=== PATIENT | female | born 1995 ===

== ENCOUNTER 2018-10-21 13:07 | Emergency (ER) | payer BC ==
[2018-10-21] MEDS ORDERED: NS(*) 0.9% 1000 ML BAG 1,000 ML IV ONE (13:24)
[2018-10-21] MEDS ORDERED: ONDANSETRON 4 MG ODT TABDP SL ONE (13:25)
[2018-10-21] MEDS ORDERED: KETOROLAC 15 MG/ML VIAL IVP ONE (13:25)
[2018-10-21] MEDS ORDERED: LORazepam 2 MG/ML VIAL IVP ONE (13:25)
--- NOTE | 2018-10-21 13:29 | ER Report ---
History and Physical Time Seen By MD: 13:25 Hx. of Stated Complaint: patient is reporting bilateral shoulder pain and pain in the muscles of her neck HPI/ROS CHIEF COMPLAINT: Muscle pain, dizziness nausea HISTORY OF PRESENT ILLNESS: Patient is an otherwise healthy 23-year-old female who states this morning she woke up and felt some dizziness and also heaviness to her arms and legs. She denies any significant trauma or injury. She states that as the day progressed she noticed more increasing pain to her upper neck an d shoulder area. Patient works as daycare provider. She denies any headache. Although she does state that she was seeing flashes of light in both of her eyes and weird squiggles like a strobe light. She denies any chest pain or abdominal pain she denies vomiting or diarrhea but does report nausea. She has no known ill contacts. She states when she tilts her head back she feels somewhat dizzy. REVIEW OF SYSTEMS: Respiratory: No cough, no dyspnea. Cardiovascular: No chest pain, no palpitations. Gastrointestinal: No vomiting, no abdominal pain. Musculoskeletal: Neck pain generalized muscle pain Allergies: Coded Allergies: No Known Drug Allergies (Unverified , 10/21/18) Home Meds No Active Prescriptions or Reported Meds Past Medical/Surgical History No known medical problems Hx Substance Use Disorder: No Hx Alcohol Use: No Constitutional Vital Sign - Last 24 Hours 10/21/18 13:09 Temp 97.8 Pulse 106 Resp 16 B/P (MAP) 135/73 Pulse Ox 96 O2 Delivery Room Air Physical Exam General Appearance: The patient is alert, has no immediate need for airway protection and no signs of toxicity. Eyes: Pupils equal and round no pallor or injection. Anoscopic exam reveals sharp disks bilaterally no AV nicking, extraocular muscles are intact and symmetrical. ENT, Mouth: Mucous membranes are moist. Respiratory: There are no retractions, lungs are clear to auscultation. Cardiovascular: Regular rate and rhythm. Gastrointestinal: Abdomen is soft and non tender, no masses, bowel sounds normal. Neurological: Cranial nerves II through XII are intact and symmetrical. Skin: Warm and dry, no rashes. Musculoskeletal: Neck is supple non tender. Extremities are nontender, nonswollen and have full range of motion. Medical Decision Making Data Points Result Diagram: 10/21/18 1340 10/21/18 1340 Laboratory Hematology Test 10/21/18 13:40 White Blood Count 6.3 k/uL (4.5-11.0) Red Blood Count 4.81 M/uL (4.17-5.56) Hemoglobin 15.1 g/dL (12.0-16.0) Hematocrit 43.7 % (34.0-47.0) Mean Corpuscular Volume 91.0 fL (80.0-96.0) Mean Corpuscular Hemoglobin 31.3 pg (26.0-33.0) Mean Corpuscular Hemoglobin Concent 34.4 g/dL (32.0-36.0) Red Cell Distribution Width 13.0 % (11.5-14.5) Platelet Count 214 K/uL (150-450) Mean Platelet Volume 8.4 fL (7.2-11.1) Neutrophils (%) (Auto) 57.7 % (39.4-72.5) Lymphocytes (%) (Auto) 31.7 % (17.6-49.6) Monocytes (%) (Auto) 8.6 % (4.1-12.4) Eosinophils (%) (Auto) 1.5 % (0.4-6.7) Basophils (%) (Auto) 0.5 % (0.3-1.4) Nucleated RBC Relative Count (auto) 0.0 /100WBC Neutrophils # (Auto) 3.6 K/uL (2.0-7.4) Lymphocytes # (Auto) 2.0 K/uL (1.3-3.6) Monocytes # (Auto) 0.5 K/uL (0.3-1.0) Eosinophils # (Auto) 0.1 K/uL (0.0-0.5) Basophils # (Auto) 0.0 K/uL (0.0-0.1) Nucleated RBC Absolute Count (auto) 0.00 K/uL Chemistry Test 10/21/18 13:40 Sodium Level 137 mmol/L (137-145) Potassium Level 3.6 mmol/L (3.5-5.0) Chloride Level 105 mmol/L (98-107) Carbon Dioxide Level 24 mmol/L (22-31) Blood Urea Nitrogen 9 mg/dl (7-18) Creatinine 0.70 mg/dl (0.52-1.04) Glomerular Filtration Rate Calc > 60.0 Random Glucose 90 mg/dl (75-110) Calcium Level 9.2 mg/dl (8.4-10.2) Total Creatine Kinase 83 U/L (30-135) Human Chorionic Gonadotropin, Qual Negative (NEGATIVE) Urinalysis Test 10/21/18 13:00 Urine Color Yellow Urine Clarity Cloudy Urine pH 7.0 pH (4.8-9.5) Urine Specific [place] 1.024 Urine Protein Negative mg/dL (NEGATIVE) Urine Glucose (UA) Negative mg/dL (NEGATIVE) Urine Ketones Negative mg/dL (NEGATIVE) Urine Blood Negative (NEGATIVE) Urine Nitrite Negative (NEGATIVE) Urine Bilirubin Negative (NEGATIVE) Urine Urobilinogen Negative mg/dL (0.2-1.9) Urine Leukocyte Esterase Negative (NEGATIVE) Urine RBC 2 /HPF (0-2/HPF) Urine WBC None /HPF (0-5/HPF) Urine Squamous Epithelial Cells Many /LPF (</=FEW) Urine Amorphous Crystals Few /LPF Urine Bacteria Negative /HPF (NONE-FEW) Urine Mucus Few /HPF (NONE-FEW) EKG/Imaging Imaging FACILITY: [facility] PATIENT NAME: Shiloh Kelly : 1995 MR: [id number] V: [id number] EXAM DATE: ORDERING PHYSICIAN: BREANA MARLOW TECHNOLOGIST: Location: [facility] [place] Patient: Shiloh Kelly : 1995 Visit/Account:[id number] Date of Sevice: 10/21/2018 EXAMINATION: CT head without IV contrast HISTORY: Dizziness COMPARISON: None. TECHNIQUE: Contiguous axial images were obtained from the skull base to the vertex without intravenous contrast. Sagittal and coronal reformatted images are also submitted. One of the following dose optimization techniques was utilized in the performance of this exam: Automated exposure control; adjustment of the mA and/or kV according to the patient's size; or use of an iterative r econstruction technique. Specific details can be referenced in the facility's radiology CT exam operational policy. FINDINGS: Brain volume: Normal. Ventricles: Normal. Acute ischemic changes: None. Hemorrhage: None. Masses/edema: None. Rodney-white: Negative. White matter: Normal. Vessels: Negative. Extra-axial: Negative. Calvarium/scalp: Negative. Skull base/visualized face: Negative. Visualized sinuses/orbits: Negative. IMPRESSION: No intracranial mass lesion or hemorrhage. No CT evidence of acute infarct. Report Dictated By: JAMIA ROBERTS at 10/21/2018 3:12 PM Report E-Signed By: JAMIA ROBERTS at 10/21/2018 3:14 PM WSN:[id number] FACILITY: [facility] PATIENT NAME: Shiloh Kelly : 1995 MR: [id number] V: [id number] EXAM DATE: ORDERING PHYSICIAN: BREANA MARLOW TECHNOLOGIST: Location: [facility] [place] Patient: Shiloh Kelly : 1995 Visit/Account:[id number] Date of Sevice: 10/21/2018 Exam type: CERVICAL SPINE 2 OR 3 VIEW History: Pain in shoulder and neck Comparison: None. Findings: Three views were submitted There is straightening of normal cervical lordosis. C1-T1 are seen in gross anatomic alignment. There is no evidence of acute fractures or subluxations. The disc spaces appear well-preserved. There is no evidence of prevertebral soft tissue swelling. IMPRESSION: 1. Stranding in the normal cervical lordosis otherwise unremarkable three views of the cervical spine Report Dictated By: Caitlyn Winters MD at 10/21/2018 2:58 PM Report E-Signed By: Caitlyn Winters MD at 10/21/2018 3:00 PM WSN:[id number] ED Course/Re-evaluation ED Course 10/21/2018 1:29:20 pm After history and physical exam was performed differential diagnosis was formulated which includes but is not limited to muscle sprain, a cephalgia, migraine, benign positional vertigo, central vertigo, viral illness, plan at this time will be CT of the head noncontrast along with plain films of the neck. We will also obtain a CBC BMP test CPK urinalysis. Decision to Disposition Date: Oct 21, 2018 Decision to Disposition Time: 15:35 Depart Departure Latest Vital Signs Vital Signs Date Time Temp Pulse Resp B/P (MAP) Pulse Ox O2 Delivery O2 Flow Rate FiO2 10/21/18 13:09 97.8 106 16 135/73 96 Room Air Impression: Primary Impression: Muscle spasms of neck Condition: Improved Disposition: HOME OR SELF-CARE New Scripts Cyclobenzaprine Hcl (CYCLOBENZAPRINE HCL) 10 Mg Tablet 10 MG PO TID, #9 TAB 0 Refills Prov: BREANA MARLOW MD 10/21/18 Ibuprofen (IBUPROFEN) 600 Mg Tablet 1 TAB PO Q8H for PAIN, #30 TAB 0 Refills Prov: BREANA MARLOW MD 10/21/18 Patient Instructions: Muscle Spasm (ED) BREANA MARLOW MD Oct 21, 2018 13:29
[2018-10-21] MEDS ORDERED: ONDANSETRON 4 MG/2 ML VIAL IVP ONE (13:30)
[2018-10-21 14:01] LABS: PLATELET COUNT, AUTOMATED 214 K/uL (150-450)
--- NOTE | 2018-10-21 15:08 | RADIOLOGY IMAGING REPORT ---
FACILITY: [facility] PATIENT NAME: Shiloh Kelly : 1995 MR: [id number] V: [id number] EXAM DATE: ORDERING PHYSICIAN: BREANA MARLOW TECHNOLOGIST: Location: [facility] [place] Patient: Shiloh Kelly : 1995 Visit/Account:[id number] Date of Sevice: 10/21/2018 Exam type: CERVICAL SPINE 2 OR 3 VIEW History: Pain in shoulder and neck Comparison: None. Findings: Three views were submitted There is straightening of normal cervical lordosis. C1-T1 are seen in gross anatomic alignment. There is no evidence of acute fractures or subluxations. The disc spaces appear well-preserved. There is no evidence of prevertebral soft tissue swelling. IMPRESSION: 1. Stranding in the normal cervical lordosis otherwise unremarkable three views of the cervical spin e Report Dictated By: Caitlyn Winters MD at 10/21/2018 2:58 PM Report E-Signed By: Caitlyn Winters MD at 10/21/2018 3:00 PM WSN:[email or web address]
--- NOTE | 2018-10-21 15:23 | RADIOLOGY IMAGING REPORT ---
[place] [facility] [place] Shiloh Kelly : 1995 MR: [id number] V: [id number] EXAM DATE: ORDERING PHYSICIAN: BREANA MARLOW TECHNOLOGIST: Location: [facility] Patient: Shiloh Kelly : 1995 Visit/Account:[id number] Date of Sevice: 10/21/2018 EXAMINATION: CT head without IV contrast HISTORY: Dizziness COMPARISON: None. TECHNIQUE: Contiguous axial images were obtained from the skull base to the vertex without intraven ous contrast. Sagittal and coronal reformatted images are also submitted. One of the following dose optimization techniques was utilized in the performance of this exam: Autom ated exposure control; adjustment of the mA and/or kV according to the patient's size; or use of an i terative reconstruction technique. Specific details can be referenced in the facility's radiology C T exam operational policy. FINDINGS: Brain volume: Normal. Ventricles: Normal. Acute ischemic changes: None. Hemorrhage: None. Masses/edema: None. Rodney-white: Negative. White matter: Normal. Vessels: Negative. Extra-axial: Negative. Calvarium/scalp: Negative. Skull base/visualized face: Negative. Visualized sinuses/orbits: Negative. IMPRESSION: No intracranial mass lesion or hemorrhage. No CT evidence of acute infarct. Report Dictated By: JAMIA ROBERTS at 10/21/2018 3:12 PM Report E-Signed By: JAMIA ROBERTS at 10/21/2018 3:14 PM WSN:[id number]
[2018-10-21 15:30] VITALS: BP 115/69
[2018-10-21] MEDS ORDERED: CYCL10TA29 PO (15:41)
[2018-10-21] MEDS ORDERED: IBUP600T22 PO (15:41)
== END 2018-10-21 15:47 | disposition home or self-care (01) ==
LOC: ER 13:07
DX: M62.838 Other muscle spasm (principal)
CPT/HCPCS: 70450; 72040; 81001; 82550; 84703; 85025; 96361; 96374; 96375; 99284; J1885; J2060; J2405; J7030; 82310; 82374; 82435; 82565; 82947; 84132; 84295; 84520